=== PATIENT | female | born 1950 | race Hispanic/Latino ===

== ENCOUNTER 2024-08-16 11:00 | Outpatient (RCR) | payer MEDICARE | END 2024-08-18 | LOC: PT 11:00 | PROVIDERS: ATTEND Nurse Practitioner Family | DX: R48.8 Other symbolic dysfunctions (principal); R47.02 Dysphasia; R41.3 Other amnesia; R47.9 Unspecified speech disturbances ==

== ENCOUNTER 2024-09-13 14:00 | Outpatient (RCR) | payer MEDICARE | END 2024-09-15 | LOC: PT 14:00 | PROVIDERS: ATTEND Nurse Practitioner Family | DX: F80.1 Expressive language disorder (principal); R48.8 Other symbolic dysfunctions ==

== ENCOUNTER 2024-09-25 10:50 | Outpatient (RCR) | payer MEDICARE | END 2024-10-16 | LOC: PT 10:50 | PROVIDERS: ATTEND Nurse Practitioner Family | DX: F80.1 Expressive language disorder (principal); R48.8 Other symbolic dysfunctions ==